=== PATIENT | female | born 1975 | race Caucasian/White ===

== ENCOUNTER 2019-05-09 12:24 | Emergency (ER) | payer MEDICAID ==
[2019-05-09 12:44] VITALS: BP 147/83; PULSE 77
[2019-05-09] MEDS ORDERED: Albuterol/Ipratropium 3.0-0.5 MG/3 ML Neb Soln NEB ONE (13:15)
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
--- NOTE | 2019-05-09 14:07 | CRLCR ---
Indication: Cough. Technique: PA and lateral views the chest were obtained. Comparison: None Findings: The heart is normal in size. The lungs are clear. No infiltrate, pleural effusion, or pneumothorax is identified. Impression: No acute cardiopulmonary process. Dictated by Nuria Bro MD @ May 09 2019 2:05PM Signed by Dr. Nuria Bro @ May 09 2019 2:05PM
== END 2019-05-09 14:21 | disposition home or self-care (01) ==
LOC: JP.ED 12:24
DX: J40 Bronchitis, not specified as acute or chronic (principal); Z87.891 Personal history of nicotine dependence
CPT/HCPCS: 36415; 71046; 80048; 84484; 85025; 94640; 99285-25; J7620-GY